=== PATIENT | female | born 1990 | race Caucasian/White ===

== ENCOUNTER 2019-02-03 10:11 | Emergency (ER) | payer BC ==
[~2019-02-03] VITALS: Ht 170.2 cm; Wt 77.3 kg
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
--- NOTE | 2019-02-03 11:13 | NUR ---
PT STATES SHE TOOK ABOUT 60 IBUPROFEN LAST NIGHT AT ABOUT 2330. PT STATES SHE VOMITED BUT NOT UNTIL THIS AM AT ABOUT 0730, NO PILLS IN EMESIS
--- NOTE | 2019-02-03 11:16 | NUR ---
PT STATES SHE ALSO SMOKED SOME HEROIN LAST NIGHT IN HOPES OF HURTING HERSELF
--- NOTE | 2019-02-03 11:29 | NUR ---
PER POISON CONTROL: WATCH FOR N/V, ACIDOSIS, IMPAIRED RENAL FUNCTION. CHECK CHEMISTRY PANEL NOW AND AGAIN IN ABOUT 4 HRS, GIVE ONE TO TWO LITERS OF IV FLUID FOR HYDRATION, CHECK OTHER DRUG LEVELS (SALYCILATE AND ACETAMINOPHEN) AND HCG
[2019-02-03 12:08] LABS: BASOPHILS % (AUTO) 0.3 % (0-1); EOSINOPHILS % (AUTO) 0.2 % (0-6); HEMATOCRIT 43.1 % (35.0-45.0); HEMOGLOBIN 14.8 g/dl (12.0-16.0); LYMPHOCYTES # (AUTO) 1.2 X10'3 (1.1-4.8); LYMPHOCYTES % (AUTO) 11.4 % (21-51); MEAN CORPUSCULAR HEMOGLOBIN 30.5 PG (27.0-31.0); MEAN CORPUSCULAR HGB CONC 34.4 g/dL (33.0-36.5); MEAN CORPUSCULAR VOLUME 88.6 FL (78-98); MEAN PLATELET VOLUME 8.6 FL (7.4-10.4); MONOCYTES # (AUTO) 0.5 X10'3 (0-0.9); MONOCYTES % (AUTO) 4.6 % (2-12); NEUTROPHILS # (AUTO) 8.9 X10'3 (1.8-7.7); NEUTROPHILS % (AUTO) 83.5 % (42-75); PLATELET COUNT 239 X10'3 (140-440); RED BLOOD COUNT 4.86 X10'6 (4.20-5.60); RED CELL DISTRIBUTION WIDTH 12.6 % (11.5-14.5); WHITE BLOOD COUNT 10.7 X10'3 (4.5-11.0)
[2019-02-03 12:26] LABS: CLARITY,URINE SLIGHTLY CLOUDY (Clear); COLOR,URINE YELLOW (Yellow); GLUCOSE, URINE NEGATIVE (Neg); KETONES,URINE TRACE mg/dl (Neg); LEUKOCYTE ESTERASE ,URINE NEGATIVE (Neg); NITRITES, URINE NEGATIVE (Neg); OCCULT BLOOD,URINE NEGATIVE (Neg); PH,URINE 6.5 (4.8-8.0); PROTEIN,URINE 30 mg/dl (Neg); UROBILINOGEN,URINE 0.2 E.U/dL (0.2-1.0)
[2019-02-03 12:28] LABS: URINE HCG NEGATIVE (NEG)
[2019-02-03 12:30] LABS: ALANINE AMINOTRANSFERASE 27 U/L (12-78); ALBUMIN/GLOBULIN RATIO 1.2 (1.1-1.5); ALKALINE PHOSPHATASE 70 IU/L (46-116); ANION GAP 10 (8-16); ASPARTATE AMINO TRANSFERASE 40 U/L (10-37); BILIRUBIN,TOTAL 0.5 MG/DL (0.1-1.0); BLOOD UREA NITROGEN 14 MG/DL (7-18); BUN/CREATININE RATIO 13.9 (6.6-38.0); CHLORIDE 105 MMOL/L (99-107); CREATININE 1.01 MG/DL (0.40-0.90); GLUCOSE 105 MG/DL (70-104); POTASSIUM 4.3 MMOL/L (3.5-5.1); SODIUM 143 MMOL/L (135-145); TOTAL CARBON DIOXIDE 28.5 MMOL/L (24-32); TOTAL PROTEIN 7.4 G/DL (6.4-8.2); eGFR 66 ML/MIN
[2019-02-03 12:32] LABS: ETHANOL < 0.010 GM/DL (0.0-0.010)
[2019-02-03 12:32] LABS: URINE AMPHETAMINE SCREEN POSITIVE (Neg); URINE BARBITUATE SCREEN NEGATIVE (Neg); URINE BENZODIAZEPINES SCREEN NEGATIVE (Neg); URINE CANNABINOID SCREEN NEGATIVE (Neg); URINE COCAINE SCREEN NEGATIVE (Neg); URINE METHADONE SCREEN NEGATIVE (Neg); URINE OPIATE SCREEN POSITIVE (Neg); URINE PHENCYCLIDINE SCREEN NEGATIVE (Neg)
[2019-02-03 12:33] LABS: ACETAMINOPHEN < 2.0 UG/ML (10-30)
[2019-02-03 12:37] LABS: UA COLLECTION TYPE CLN CATCH MIDSTREAM
[2019-02-03 12:40] LABS: BACTERIA,URINE FEW /HPF (Neg); MUCUS STRANDS FEW /LPF (Neg); RBC,URINE 0-2 /HPF (0-2); SQUAMOUS EPITHELIAL CELL,UR MODERATE /LPF (FEW); WBC,URINE 0-4 /HPF (0-4)
--- NOTE | 2019-02-03 12:59 | NUR ---
TO CT SCAN; [employer] OFFICER LEFT
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
--- NOTE | 2019-02-03 17:37 | NUR ---
Patient has been calm and cooperative since admission. Currently sleeping soundly, lying on her left side, no distress noted.
[2019-02-03 17:59] VITALS: BP 115/76
--- NOTE | 2019-02-03 17:59 | NUR ---
PACKET FAXED [facility]
== END 2019-02-03 21:51 ==
LOC: ER 10:12
DX: R45.851 Suicidal ideations (principal); R11.10 Vomiting, unspecified; R94.6 Abnormal results of thyroid function studies; Y04.8XXA Assault by other bodily force, initial encounter; Y93.89 Activity, other specified; Y92.89 Other specified places as the place of occurrence of the external cause; Y99.8 Other external cause status
CPT/HCPCS: 36415; 70450; 80053; 80305; 80320; 80329; 81001; 81025; 84443; 85025; 93880; 99284